=== PATIENT | female | born 1995 | race Caucasian/White ===

== ENCOUNTER 2018-07-22 21:51 | Emergency (ER) | payer BC ==
[2018-07-23] MEDS ORDERED: Lidocaine 1% MPF* 2 ML VIAL INJ ONE (00:46)
[2018-07-23] MEDS ORDERED: Bupivacaine 0.25% SDV PF* 10 ML VIAL INJ ONE (00:46)
--- NOTE | 2018-07-23 00:48 | ED ---
Throat Pain/Nasal Congestion - HPI Summary HPI Summary: 22-year-old female presents with complaints of right upper dental pain for the past 2-3 days. States she believes she has a cavity and has a dentist appointment scheduled for 07/26/2018. She states she has used ibuprofen 400 mg every 6 hours but has had worsening of pain over the past 2 days. Denies fever, chills, facial swelling, trismus, dysphagia, or difficulty breathing. - History of Current Complaint Chief Complaint: EDDentalPain Time Seen by Provider: 07/22/18 23:45 - Allergies/Home Medications Allergies/Adverse Reactions: Allergies Allergy/AdvReac Type Severity Reaction Status Date / Time ibuprofen Allergy Hives Verified 07/22/18 21:59 Home Medications: Home Medications Naproxen [Naproxen 500 mg tab] 500 mg PO DAILY 07/22/18 [History Confirmed 07/22] PMH/Surg Hx/FS Hx/Imm Hx Previously Healthy: Yes - Denies significant PMH Infectious Disease History: No Infectious Disease History: Denies: Traveled Outside the [place] in Last 30 Days - Family History Known Family History: Positive: Non-Contributory - Social History Occupation: Employed Full-time Lives: Alone Alcohol Use: unk Substance Use Type: Reports: None Smoking Status (MU): Never Smoked Tobacco Review of Systems Negative: Fever, Chills Positive: Dental Pain Cardiovascular: Negative Respiratory: Negative Gastrointestinal: Negative Genitourinary: Negative Musculoskeletal: Negative Skin: Negative Neurological: Negative All Other Systems Reviewed And Are Negative: Yes Physical Exam - Summary Physical Exam Summary: GENERAL APPEARANCE: Well developed, well nourished, alert and cooperative, and appears to be in no acute distress. HEAD: Atraumatic. Normocephalic. No facial swelling. EYES: Conjunctiva clear. No drainage. EARS: External auditory canals and tympanic membranes clear, hearing grossly intact. NOSE: No nasal discharge. THROAT: Pharynx normal. No tonsilar inflammation, swelling, exudate, or lesions. Uvula midline. Dental carrington to the right upper first molar without gingival erythema, induration, fluctuance, or drainage. NECK: Neck supple, non-tender without lymphadenopathy. CARDIAC: Normal S1 and S2. No S3, S4 or murmurs. Rhythm is regular. There is no peripheral edema, cyanosis or pallor. Extremities are warm and well perfused. Capillary refill is less than 2 seconds. Peripheral pulses intact. LUNGS: Clear to auscultation without rales, rhonchi, wheezing or diminished breath sounds. ABDOMEN: Positive bowel sounds. Soft, nondistended, nontender. No guarding or rebound. No masses or hepatosplenomegally. MUSKULOSKELETAL: ROM intact to all extremities. No joint erythema or tenderness. Normal muscular development. Normal gait. SKIN: Skin normal color, texture and turgor with no lesions or eruptions. Triage Information Reviewed: Yes Vital Signs On Initial Exam: Initial Vitals Temp Pulse Resp BP Pulse Ox 98.1 F 62 16 140/96 98 07/22/18 21:56 07/22/18 21:56 07/22/18 21:56 07/22/18 21:56 07/22/18 21:56 Vital Signs Reviewed: Yes Procedures - Procedure Summary Procedure Summary: Procedure note: Right posterior superior alveolar nerve block Informed consent was obtained before procedure started and the appropriate timeout was taken. A right posterior superior alveolar block was performed using 3 ml of a 50%-50% solution of bupivacaine 0.25% without epi and lidocaine 1% without epinephrine. Patient tolerated well and reports relief from dental pain. Diagnostics - Vital Signs Vital Signs Temp Pulse Resp BP Pulse Ox 07/22/18 21:56 98.1 F 62 16 140/96 98 - Laboratory Lab Statement: Any lab studies that have been ordered have been reviewed, and results considered in the medical decision making process. EENT Course/Dx - Course Course Of Treatment: 22-year-old female presents with complaints of right upper dental pain for the past 2-3 days. States she believes she has a cavity and has a dentist appointment scheduled for 07/26/2018. She states she has used ibuprofen 400 mg every 6 hours but has had worsening of pain over the past 2 days. Denies fever, chills, facial swelling, trismus, dysphagia, or difficulty breathing. Afebrile. VSS. Patient noted to have a dental carrington to the right upper first molar without gingival erythema, induration, fluctuance, or drainage. Patient had last taken ibuprofen approximately [address] had [address] herself to the ED therefore a superior posterior alveolar block was offered, patient consented, and was performed without complication. Patient verbalized relief from pain. Will start patient on amoxicillin 500 mg TID for possible dental infection. First dose given in the ED. I have encouraged the patient to continue to use the ibuprofen for pain management but will also provide a short- term prescription for hydrocodone-acetaminophen 5 mg/325 mg 1 tab Q8h as needed for severe pain. She is to keep her appointment with the dentist as scheduled. Anticipatory guidance and warning symptoms reviewed with patient. Verbalizes understanding and agrees with POC. - Differential Diagnoses Differential Diagnoses: Dental Abscess, Dental Caries, Periodontic Abscess, Periodontic Disease - Diagnoses Provider Diagnoses: Pain, dental Discharge - Sign-Out/Discharge Documenting (check all that apply): Patient Departure Patient Received Moderate/Deep Sedation with Procedure: No - Discharge Plan Condition: Stable Disposition: HOME Prescriptions: Amoxicillin PO (*) [Amoxicillin 500 MG CAP*] 500 mg PO TID #30 cap Hydrocodone/Acetaminophen [Hydrocodone-Acetamin 5-325 mg] 1 each PO Q8HR PRN #9 tablet MDD 3 PRN Reason: Severe Pain Patient Education Materials: Toothache (ED) Referrals: No Primary Care Phys,NOPCP [Primary Care Provider] - Additional Instructions: I performed a nerve block to provide you with some temporary relief of the pain. This will last approximately 6 hours. Start amoxicillin 500 mg three times a day for 10 days. You were given the first dose in the emergency room. Take continue to use naproxen according to directions as needed for pain. Take hydrocodone-acetaminophen 5 mg/325 mg 1 tablet every 8 hours as needed for severe pain. Be sure to rinse your mouth out with a warm salt water solution after every time you eat to remove any debris. Keep your appointment with your dentist as scheduled. Seek immediate medical attention in the emergency room if you develop fever greater than 100.5 F, you are unable to open of close your mouth, are unable to swallow, have difficulty breathing, or any worsening of symptoms. - Billing Disposition and Condition Condition: STABLE Disposition: Home
[2018-07-23] MEDS ORDERED: Lidocaine 1% INJ* 10 MG/ML 30 ML SDV ONE (00:55)
[2018-07-23] MEDS ORDERED: Amoxicillin PO (*) 250 MG CAP PO ONE (00:58)
[2018-07-23 01:44] VITALS: BP 135/93
== END 2018-07-23 01:43 | disposition home or self-care (01) ==
LOC: ED 21:51
DX: K08.89 Other specified disorders of teeth and supporting structures (principal)
CPT/HCPCS: 99282; A9270-GY; J3490